=== PATIENT | female | born 1985 | race Caucasian/White ===

== ENCOUNTER 2018-10-01 18:26 | Observation (INO) | payer MEDICAID, SELFPAY ==
[2018-10-01] VITALS (20 sets, daily range): BP systolic 90–107; BP diastolic 60–69; PULSE 98–127; RESP 12–25; TEMP 37.1–38; O2SAT 84–100
--- NOTE | 2018-10-01 18:42 | NUR.NOTE ---
shortly after arriving to room and changing into gown patient right hand began shaking and patient started to make imcomprehensible sounds , patient responds to pain stimuli. Nursing Note:
--- NOTE | 2018-10-01 18:45 | W.ED.GENAD ---
Discharge Plan Disposition Patient Disposition: [facility] INPATIENT Condition: Fair Discharge Details Chief Complaint: AMS/LOC Clinical Impression: Altered mental status, unspecified ED Provider: Phillip Bee Meds and New Rx's Prescriptions: No Action oxycodone 5 mg Capsule 1 tab PO PRN PRNRF: 0 Medical Decision Making Patient is ordered for 1 mg of Ativan IM. This does not appear to be seizure-like activity to me either. I am in agreement with [facility]'s evaluation as well as neurology's evaluation. Recommendations were to admit for MRI and EEG. No loading of antiepileptic. I did speak to the ED physician at [facility] as well as reviewed the records that have been sent down to us. Patient symptoms resolved after the Ativan. I do think they are related to anxiety more than anything. She reports to me now that she is able to hear and comprehend what is being said but cannot respond. She is now complaining of some nausea and epigastric discomfort. These apparently are not new symptoms for her as she has had them for years episodically. However, she is stating that the symptoms are what is causing her to have these episodes. In any event, I did explain to her that her kids cannot stay here with her. She understands this at this point. Significant other has arranged for the children to go home with his mother. Patient is agreeable to admission here. Case is discussed with hospitalist. To Robyn with a seizure precautions. Will obtain MRI and EEG during observation admission. Recommend psychiatric consultation. Medical Records Medical records reviewed: Yes I reviewed the patient's medical records. HPI General Mode of arrival: ambulatory. Date/Time Provider Initiated Documentation: 10/01/18 18:39. Limitations to Documentation: altered mental status. Information obtained by: family, RN/MD and old records reviewed. HPI Narrative: Patient is brought here by her significant other for evaluation of question seizures. Patient just eloped from [facility] ED. Significant other reports that he brought her here for a second opinion. Per our nurse patient walked in on her own and was coherent. She undressed herself and got into the gown. When she got into bed she started uttering one syllable sounds over and over. Her eyes are closed. She is swaying her legs back and forth. Per the significant other these are the episodes that have been occurring. I spoke to the physician in [facility] ED who was just taking care of her. Patient symptoms apparently began after dental extraction on Saturday for which she was given Versed and ketamine. First event occurred shortly after the procedure and she was transported to [facility] ED. She was given Ativan there. Subsequently discharged. She was in [facility] ED last night for similar presentation. She was back there this afternoon. She has had a head CT at [facility] which was negative. Laboratory workup including lipase, CBC, CMP, troponin were all negative. She was seen by telemetry neurology at [facility] while in the ED at [facility]. It was felt that this likely was related to anxiety and pseudoseizures as opposed to true seizure. They recommended no antiepileptics. Sedate with Ativan as needed. Obtain MRI and EEG. She was set to be admitted there but when she was told that her children could not stay with her she apparently became angry and pulled her IV and left. That is how she ended up here. Significant other confirms all of the above. Patient herself is unable to provide me any type of history at this time. Related Data Home Medications Medication Instructions Recorded Confirmed oxycodone 1 tab PO PRN PRN 10/01/18 10/01/18 Allergies Allergy/AdvReac Type Severity Reaction Status Date / Time Penicillins Allergy Unknown Other (See Unverified 10/01/18 18:44 Comment) General Stated Complaint: AMS/LOC SHEREEN: 2 Review of Systems Review of Systems Unobtainable due to mental status PFSH Medical History Anxiety (Chronic) Depression (Chronic) Surgical History H/O: hysterectomy (Inactive) S/P cholecystectomy (Inactive) Exam Const General: other (Eyes closed, leg swaying back and forth, 1 syllable utterances being repeat) HENMT Head: normocephalic and atraumatic Mouth: moist mucous membranes Neck Neck: supple Resp Effort & Inspection: normal respiratory effort Auscultation: clear to auscultation bilaterally Cardio Rate: tachycardic Rhythm: regular rhythm Heart Sounds: S1 normal and S2 normal Pulses: radial pulses present GI Inspection: non-distended Palpation: soft Skin Rashes: no rashes Other: warm and dry Neuro Other: Patient is lying on stretcher with her eyes closed swaying her legs back and forth. She is repetitively ordering one syllable words and noises. She purposefully reached for my hand and moved it away when I was feeling her abdomen. She is moving all 4 extremities. She appears to be nonfocal. Extrem General: no clubbing, cyanosis or edema Course Vital Signs Temperature 98.8 F 10/01/18 18:37 Pulse 110 H 10/01/18 18:37 Respiratory Rate 18 10/01/18 18:37 Blood Pressure 107/69 10/01/18 18:37 Pulse Oximetry 100 10/01/18 18:37 Temperature 98.8 F 10/01/18 18:37 Temperature Source Skin 10/01/18 18:37 Pulse 110 H 10/01/18 18:37 Respiratory Rate 18 10/01/18 18:37 Blood Pressure 107/69 10/01/18 18:37 Pulse Oximetry 100 10/01/18 18:37 Oxygen Delivery Method Room Air 10/01/18 18:37 Oxygen Flow Rate 0 10/01/18 18:37
--- NOTE | 2018-10-01 18:48 | ED.GENADUL_ITS ---
Discharge Plan Disposition Patient Disposition: [facility] INPATIENT Condition: Fair Discharge Details Chief Complaint: AMS/LOC Clinical Impression: Altered mental status, unspecified ED Provider: Phillip Bee Meds and New Rx's Prescriptions: No Action oxycodone 5 mg Capsule 1 tab PO PRN PRNRF: 0 Medical Decision Making Patient is ordered for 1 mg of Ativan IM. This does not appear to be seizure- like activity to me either. I am in agreement with [facility]'s evaluation as well as neurology's evaluation. Recommendations were to admit for MRI and EEG. No loading of antiepileptic. I did speak to the ED physician at [facility] as well as reviewed the records that have been sent down to us. Patient symptoms resolved after the Ativan. I do think they are related to anxiety more than anything. She reports to me now that she is able to hear and comprehend what is being said but cannot respond. She is now complaining of some nausea and epigastric discomfort. These apparently are not new symptoms for her as she has had them for years episodically. However, she is stating that the symptoms are what is causing her to have these episodes. In any event, I did explain to her that her kids cannot stay here with her. She understands this at this point. Significant other has arranged for the children to go home with his mother. Patient is agreeable to admission here. Case is discussed with hospitalist. To Robyn with a seizure precautions. Will obtain MRI and EEG during observation admission. Recommend psychiatric consultation. Medical Records Medical records reviewed: Yes I reviewed the patient's medical records. HPI General Mode of arrival: ambulatory . Date/Time Provider Initiated Documentation: 10/01/18 18:39 . Limitations to Documentation: altered mental status . Information obtained by: family, RN/MD and old records reviewed . HPI Narrative: Patient is brought here by her significant other for evaluation of question seizures. Patient just eloped from [facility] ED. Significant other reports that he brought her here for a second opinion. Per our nurse patient walked in on her own and was coherent. She undressed herself and got into the gown. When she got into bed she started uttering one syllable sounds over and over. Her eyes are closed. She is swaying her legs back and forth. Per the significant other these are the episodes that have been occurring. I spoke to the physician in [facility] ED who was just taking care of her. Patient symptoms apparently began after dental extraction on Saturday for which she was given Versed and ketamine. First event occurred shortly after the procedure and she was transported to [place] ED. She was given Ativan there. Subsequently discharged. She was in [facility] ED last night for similar presentation. She was back there this afternoon. She has had a head CT at [facility] which was negative. Laboratory workup including lipase, CBC, CMP, troponin were all negative. She was seen by telemetry neurology at [facility] while in the ED at [facility]. It was felt that this likely was related to anxiety and pseudoseizures as opposed to true seizure. They recommended no antiepileptics. Sedate with Ativan as needed. Obtain MRI and EEG. She was set to be admitted there but when she was told that her children could not stay with her she apparently became angry and pulled her IV and left. That is how she ended up here. Significant other confirms all of the above. Patient herself is unable to provide me any type of history at this time. Related Data Home Medications Medication Instructions Recorded Confirmed oxycodone 1 tab PO PRN PRN 10/01/18 10/01/18 Allergies Allergy/AdvReac Type Severity Reaction Status Date / Time Penicillins Allergy Unknown Other (See Unverified 10/01/18 18:44 Comment) General Stated Complaint: AMS/LOC SHEREEN: 2 Review of Systems Review of Systems Unobtainable due to mental status PFSH Medical History Anxiety (Chronic) Depression (Chronic) Surgical History H/O: hysterectomy (Inactive) S/P cholecystectomy (Inactive) Exam Const General: other (Eyes closed, leg swaying back and forth, 1 syllable utterances being repeat) HENMT Head: normocephalic and atraumatic Mouth: moist mucous membranes Neck Neck: supple Resp Effort & Inspection: normal respiratory effort Auscultation: clear to auscultation bilaterally Cardio Rate: tachycardic Rhythm: regular rhythm Heart Sounds: S1 normal and S2 normal Pulses: radial pulses present GI Inspection: non-distended Palpation: soft Skin Rashes: no rashes Other: warm and dry Neuro Other: Patient is lying on stretcher with her eyes closed swaying her legs back and forth. She is repetitively ordering one syllable words and noises. She purposefully reached for my hand and moved it away when I was feeling her abdomen. She is moving all 4 extremities. She appears to be nonfocal. Extrem General: no clubbing, cyanosis or edema Course Vital Signs Temperature 98.8 F 10/01/18 18:37 Pulse 110 H 10/01/18 18:37 Respiratory Rate 18 10/01/18 18:37 Blood Pressure 107/69 10/01/18 18:37 Pulse Oximetry 100 10/01/18 18:37 Temperature 98.8 F 10/01/18 18:37 Temperature Source Skin 10/01/18 18:37 Pulse 110 H 10/01/18 18:37 Respiratory Rate 18 10/01/18 18:37 Blood Pressure 107/69 10/01/18 18:37 Pulse Oximetry 100 10/01/18 18:37 Oxygen Delivery Method Room Air 10/01/18 18:37 Oxygen Flow Rate 0 10/01/18 18:37
[2018-10-01] MEDS: LORazepam 2 MG/ML VIAL 1 MG IM (19:01)
[2018-10-01] MEDS: Normal Saline 1,000 ML 150 ML IV (19:43)
[2018-10-01] MEDS: Ondansetron 4 MG/2 ML VIAL IVP (19:44)
--- NOTE | 2018-10-01 20:15 | NUR.NOTE ---
Nursing Note: Patient arrived to room in stable condition, spouse at the bedside, patient is awake, alert and oriented, able to answer questions appropriately.
--- NOTE | 2018-10-01 21:03 | HPE_ITS ---
Date of service: 10/01/18 Time of Service: 21:02 Assessment and Plan (1) Altered mental status, unspecified: Current visit: Yes Status: Acute seizures versus pseudoseizures; I favor the latter despite the husbands description of prolonged lethargy and sleeping post event. there has been no associated biting of tongue/lips, no bladder or bowel incontinence w/ the events and the patient has recollection of the events and during reported spells she actually has been seen to volitionally use her arms to pull examiner's hands off her. We will pursue recommended neuro workup including EEG and MRI of brain; we do not have available neurology in house to consult. Once the above tests are back, the day hospitalist can call [facility] neurology to discuss further outpatient follow up. Qualifiers: Altered mental status type: transient alteration of awareness Qualified Code(s): R40.4 - Transient alteration of awareness (2) Depression: Current visit: No Status: Chronic consult psychiatry to evaluate any component of anxiety and depression that may be contributing to her current somatic symptoms. patient has hx of anxiety and depression but is not on any current Rx (3) Anxiety disorder: Current visit: No Status: Chronic as above History of Present Illness Chief Complaint: seizures/altered mental status Narrative: See Dr. Phillip Bee's excellent ER narrative of patient's presentation. Patient is 33 yr old female who presents to [facility] ED accompanied by her after leaving AMA from [facility] ED in [place], [place]. Patient had presented to [facility] yesterday and again today w/ complaints of episodic acute altered mental status. These episodes were thought to possibly be seizures in which the patient will suddenly without aura go into a state of decreased responsiveness in which she will be uttering single syllable sounds over and over while her eyes are closed and she will have swaying of her legs. These episoded began after she underwent a dental extraction in [facility] in which she received ketamine and versed for sedation. After the first episode she was sent to the ER at [facility] and she was treated w/ ativan and after a workup was discharged home. She presented to [facility] ED last night with similar symptoms and again this afternoon. While at [facility] the patient was seen by Dr. Santosh Sprague, emergency room attending who performed routine labs and CT of the head. Labs including CBC, CMP, troponin, lipase were all normal. (lipase being done to evaluate subjective c/o of nausea and epigastric discomfort). After negative labs and CT of head, Dr. Sprague consulted w/ [facility] neurologist who performed a telemedicine neurology consultation including interview and visualization of the patient. During the interview the patient reportedly had one of her spells of decreased LOC and the neurologist felt that her episodes were pseudoseizures. He recommended against initiation of AED's but to hospitalize her overnight for monitoring, EEG and MRI of brain. The ED and hospitalist at [facility] were prepared to do so however the patient left AMA when she was informed that her children could not stay with her in the hospital. Dr. Bee spoke w/ Dr. Sprague to confirm all of the above and Dr. Bee relayed the above information to me. Dr. Bee also witnessed such an episode of decresed LOC in which she would lie on her back with her eyes closed w/ her legs swaying back and forth and making single syllable sounds/noises but would purposefully pull Dr. Bee's hand away from her abdomen when he was examining her. He did not witness any postictal state and her symptoms resolved after 1 mg Ativan IM was given. Dr. Bee explained to the patient that she should remain overnight for EEG and MRI of the brain in the a.m. and that her children would not be allowed to stay overnight with her in the hospital. Her has arranged for the children to go home with his mother for the night. Per my interview w/ the and the patient she has never had seizures or seizure like episodes before and she has no antecedent aura other than she will get intense epigastric abdominal pains and nausea with these spells. However, after lengthy questioning she and her admit that she has been having severe lightheaded spells since last summer and has had occasional syncope and near syncope spells which has led to a workup at [facility] that has included holter monitoring and MRI of brain. Review of Systems Constitutional Reports system reviewed and no additional complaints, except as docu PFSH Medical History Depression (Chronic) Anxiety disorder (Chronic) Syncope (Chronic) Anxiety (Chronic) Depression (Chronic) H/O wisdom tooth extraction (Resolved) Surgical History S/P hysterectomy (Resolved) S/P laparoscopic cholecystectomy (Resolved) H/O: hysterectomy (Inactive) S/P cholecystectomy (Inactive) Family History Other Diabetes History History 2 Para 2 Hx # Term Pregnancies 2 Multiple births Hx # Pregnancies Ectopic pregnancies AB induced Hx Number of Living Children 2 AB spontaneous Meds Home Medications Medication Instructions Recorded Confirmed Type oxycodone 1 tab PO PRN PRN 10/01/18 10/01/18 History Allergies Allergy/AdvReac Type Severity Reaction Status Date / Time Penicillins Allergy Unknown Other (See Unverified 10/01/18 18:44 Comment) Exam Const General: cooperative, healthy appearing and no acute distress Orientation: alert, awake and oriented x3 HENMT Head: normal to inspection, normocephalic and atraumatic Ears: hearing grossly normal bilaterally and TM's normal bilaterally General nose exam: external nose normal, nares normal and nasal mucous membranes and turbinates normal Face and sinus: normal facial exam Mouth: oral mucosae normal Teeth and gingiva: dentition normal Throat: posterior oropharynx normal and uvula midline Eyes General: appearance normal, both eyes and all related structures Visual Cuello: normal visual cuello by confrontation Alignment and Position: alignment normal and position normal Eyelids: eyelids normal Sclera: sclerae normal Cornea: corneas normal Pupils: PERRL EOM: EOM intact bilaterally Neck Neck: normal visual inspection, full ROM, no lymphadenopathy, trachea midline, supple and no JVD Thyroid: thyroid normal Carotids: normal carotid upstroke Lymphatic: no lymphadenopathy noted Chest Chest: normal inspection of the chest and normal palpation of entire chest wall Resp Effort & Inspection: normal respiratory effort and able to speak in complete sentences Auscultation: clear to auscultation bilaterally Percussion: percussion normal Cardio Jugular venous pressure: no JVD Palpation: normal PMI Rate: regular rate Rhythm: regular rhythm Heart Sounds: S1 normal, S2 normal and normal, physiologic split S2 Bruits: no abdominal aortic bruits, no carotid bruits, no femoral bruits and no renal bruits Pulses: brachial pulses present, radial pulses present, femoral pulses present, popliteal pulses present, posterior tibial pulses present, dorsalis pedis pulses present and normal peripheral pulses GI Inspection: normal to inspection Palpation: soft and no hepatosplenomegaly Percussion: normal to percussion Auscultation: normal bowel sounds Back/Spine/Pelvis Back: no CVA tenderness Cervical Spine: normal cervical lordosis and cervical ROM normal Thoracic/Lumbar Spine: thoracic and lumbar spine normal to inspection Skin General skin exam: no rashes or lesions noted and turgor normal Lesions: no lesions Rashes: no rashes Wounds: no wounds Hair: normal Nails: normal Neuro General: alert, awake (lethargic but easily awakens and answers questions appropriately), oriented x3, gait normal, tone normal, moves all extremities, normal light touch, pain and propioception, no focal motor deficits, CN's II-XI intact bilaterally and deep tendon reflexes 2+ bilaterally Cognition: normal cognition Speech: speech normal Motor: muscle tone normal throughout and strength 5/5 throughout Sensory Exam: no sensory deficits noted DTR's: Rt Triceps: 2+, Lt Triceps: 2+, Rt Biceps: 2+, Lt Biceps: 2+, Rt Patellar: 2+, Lt Patellar: 2+, Rt Ankle: 2+ and Lt Ankle: 2+ Plantar Reflexes: Downgoing: bilateral Pupils: Normal pupillary reactivity/response: bilateral Extrem General: normal to inspection, full ROM, normal capillary refill, no joint enlargement, no clubbing, cyanosis or edema and no calf tenderness Psych Appearance: grossly normal and well kempt Mental Status: mental status grossly normal Speech and Movement: speech and movement normal Mood: congruent mood Affect: normal affect Attitude: cooperative Thought Process: normal Thought Content: normal Insight: insight good Judgment: judgment good Results Last Vital Signs Temp 38 C H 10/01/18 20:29 Pulse 103 H 10/01/18 20:29 Resp 18 10/01/18 20:29 BP 103/63 10/01/18 20:29 Pulse Ox 99 10/01/18 20:29
[2018-10-02] VITALS (9 sets, daily range): BP systolic 94–110; BP diastolic 57–69; PULSE 91–116; RESP 16–20; TEMP 36.9–38.8; O2SAT 96–99
[2018-10-02] MEDS: Acetaminophen 325 MG TAB PO ×2 (00:29→08:31)
[2018-10-02] MEDS: Normal Saline 1,000 ML 150 ML IV ×3 (02:05→15:32)
--- NOTE | 2018-10-02 10:29 | INITIAL_ITS ---
Care Management Initial Assess REASON FOR HOSPITALIZATION:: Seizures Versus Pseudoseizures PAST MEDICAL HISTORY/PAST SURGICAL HISTORY:: Syncope, Anxiety disorder, Depression, AMS unspecified PREVIOUS FUNCTIONAL STATUS/SOCIAL/FAMILY SUPPORTS:: Kristina resides in [place] with her significant other, Gary and their two children ages nine and three. CURRENT FUNCTIONAL STATUS:: Kristina was lying in bed, she reviewed her history leading up to admission and reported she was experiencing some blurry vision, but otherwise was doing ok. ADVANCE DIRECTIVES:: None on file. Has patient been provided with information about the portal?: No Did the patient sign up for the portal?: No CODE STATUS:: Full Code INSURANCE COVERAGE / FINANCIAL ISSUES:: Medicaid CURRENT HOME/COMMUNITY SERVICES/EQUIPMENT:: No current services or equipment. PRIMARY CARE PHYSICIAN:: Dr. Adrienne Lazo POTENTIAL DISCHARGE NEEDS:: Psyche consult, possible outpatient follow up plan. PATIENT/FAMILY EDUCATION NEEDS:: Review discharge instructions, discuss Ask Me Three. ANTICIPATED BARRIERS TO DISCHARGE:: None identified. TRANSPORTATION:: Via private vehicle PLAN:: Kristina will continue work up of presenting symptoms. She will have a Psychiatric Consult and continue to be closely monitored. Discharge plan undetermined at this time. Kristina will transport via private vehicle with family.
[2018-10-02] MEDS: Normal Saline Flush 10 ML SYR IVP ×3 (11:01→16:53)
[2018-10-02] MEDS: LORazepam 2 MG/ML VIAL 1 MG IVP (11:01)
[2018-10-02 11:17] LABS: Abs Immature Grans 0.02 k/cumm (0.0-0.09); Absolute Basophil Count 0.02 k/cumm (0.0-0.2); Absolute Eosinophil Count 0.02 k/cumm (0.0-0.7); Absolute Lymphocyte Count 0.57 k/cumm (1.2-3.4); Absolute Monocyte Count 0.29 k/cumm (0.11-0.7); Absolute Neutrophil Count 2.37 k/cumm (1.2-6.7); Basophils % 0.6; Eosinophils % 0.6; HCT 34.6 % (36.0-46.0); HGB 11.5 g/dL (12.0-15.5); Immature Grans % 0.6; Lymphocytes % 17.3; Mean Corp. HGB Concentration 33.2 g/dL (32.0-36.0); Mean Corpuscular Hemoglobin 29.2 pg (27.0-33.0); Mean Corpuscular Volume 87.8 fL (80-95); Mean Platelet Volume 10.2 fL (8.0-11.0); Monocytes % 8.8; Neutrophils % 72.1; Platelet Count 218 x1000/uL (130-400); RBC 3.94 m/cumm (4.00-5.20); RBC Distribution Width 13.6 % (11.7-14.6); White Blood Cell Count 3.29 k/cumm (4.4-10.8)
[2018-10-02 11:22] LABS: BUN 5 mg/dL (7-18); CREATININE 0.64 mg/dL (0.55-1.02); Calcium 7.3 mg/dL (8.5-10.1); Chloride 110 mmol/L (98-107); Glucose 97 mg/dL (70-100); Potassium 3.5 mmol/L (3.5-5.1); Sodium 141 mmol/L (136-145)
--- NOTE | 2018-10-02 12:07 | PHARADMIT ---
Admission Pharmacy Clinical Review SEIZURES VS PSEUDOSEIZURES Code Status Full Code Current Weight Wgt- 66.7 kg Renally Cleared and Narrow Therapeutic Index Meds CrCl~ 93.63 mL/min Medss-OK QTc Value / Action Taken NA BP Control, Fever BP- 104/57 Tmax- 38C Electrolytes reviewed Na- 141 K+3.5 DVT Prophylaxis none Opiate Usage / Scheduled Bowel Regimen Ordered Yes Yes Plt/SCr for Heparin / Enoxaparin Plts-218 SCr-0.64 INR for Warfarin na H/H stable, WBC/Bands H&H- 11.5/34.6 WBC- 3.29 Antibiotic appropriateness none Blood-pending Surgical ABX d/c within 24 hr na DM control / Insulin Dosing BG- 97 Heart Failure (Check EF%) (TIFFANY's, B-Block, Diuretics) none IV to PO Switch No Home Meds Reviewed Yes Home Meds Not Ordered none Comments
--- NOTE | 2018-10-02 12:11 | DI.MRI_ITS ---
SYMPTOMS/DIAGNOSIS: PSEUDOSEIZURES VERSUS SEIZURES MRI OF THE BRAIN: T 2 sagittal, T 1, T 2, FLAIR, diffusion and gradient echo axial and T 2 coronal sequences were performed. There is motion on multiple sequences. No intracranial hemorrhage, mass or infarct is seen. The ventricles are normal in size. There are no areas of restricted diffusion. There are no abnormal high signal lesions in the white matter. There is mucosal thickening of the ethmoid and maxillary sinuses. The vascular flow voids appear intact. The orbits and mastoid air cells are unremarkable. IMPRESSION: The exam is mildly limited by patient motion. No acute abnormality is identified.
--- NOTE | 2018-10-02 12:17 | DI.RAD_ITS ---
SYMPTOMS/DIAGNOSIS: FEVER PA AND LATERAL CHEST: The cardiac and mediastinal contours have a normal appearance. The lungs are well inflated and clear. No infiltrate or effusion is seen. Surgical clips are noted in the right upper quadrant. No new air is seen. IMPRESSION: Negative chest x-ray.
[2018-10-02 13:22] LABS: Magnesium 1.6 mg/dL (1.8-2.4); PHOSPHORUS 2.9 mg/dL (2.6-4.7); TSH (W/Ref FT4) 0.21 uIU/mL (0.358-3.74)
[2018-10-02 13:36] LABS: Vitamin D 25 Total 22.8 ng/ml (30-100)
[2018-10-02 14:55] LABS: HCG Qual (Urine) Negative
--- NOTE | 2018-10-02 14:56 | PGE_ITS ---
Date of Service Date of service: 10/02/18 Time of Service: 14:55 Assessment and Plan (1) Altered mental status, unspecified: Current visit: Yes Status: Acute Admitted for seizures versus pseudoseizures, with recollection of the events during, before and immediately following the episodes, she did not bowel or bladder incontinence, not tongue biting, no postictal state noted. MRI ne gative for acute process, nothing on physical exam to indicate meningitis. She endorses significant anxiety and stress in her life. She is followed by [facility] in [place]. She is prescribed Citalopram but has not reliably taken it (states she forgets). Continue seizure precautions, continue to monitor. She will need to follow up with [facility] in [place] as well as Neurology here at [facility] (not available for consult today). Qualifiers: Altered mental status type: transient alteration of awareness Coma depth: Coma timing: Qualified Code(s): R40.4 - Transient alteration of awareness (2) Fever: Current visit: Yes Status: Acute Possibly related to recent dental extraction. MRI negative, UA negative, chest x-ray negative, blood cultures pending. She has been afebrile throughout the day. Continue to monitor temperature. Repeat CBC in the am. If she continues to have fevers overnight, consider oral antibiotics for possible dental infection with follow up with her dental provider. Continue to monitor blood cultures. (3) Depression: Current visit: No Status: Chronic Continue Citalopram. Follow up with provider at [facility]. (4) Anxiety disorder: Current visit: No Status: Chronic Altered mental states possibly related to anxiety. Continue citalopram per home dose. Follow up with [facility]. (5) GERD (gastroesophageal reflux disease): Current visit: Yes Status: Chronic Epigastric discomfort that increases with anxiety. Initiate PPI. Continue PPI on discharge home. (6) DVT prophylaxis: Current visit: Yes Status: Acute SCDs for this healthy 33 year old female who is ambulatory. Encourage ambulation and hydration. Subjective Interval history since last seen: Kristina Bailon is a 33 year old female who presented to the ED overnight with reports of possible seizures. She recalled the events during the episode, she did not bowel or bladder incontinence, not tongue biting, no postictal state noted. She recently had Stephens teeth extr action (3) in [place] on Saturday (3 days prior). She was seen at [facility] and had a psychiatric visit via telemedicine at which time another episode was witnessed. Psychiatry did not feel that this event represented a seizure and did not recommend antiepileptics. She eloped from [facility] and presented to the [facility] ED. She has not had any seizure-like episodes today. She reports feeling tired, her eyes are blurry, she denies pain except in her neck, she denies any neck stiffness. She had 2 wisdom teeth extracted from her right upper jaw and one from her left lower jaw 3 days ago. The right upper jaw is sore. She denies headache, photophobia. She is not shortness of breath, coughing, wheezing, no chest pain/pressure, nausea, vomiting, diarrhea. She denies dysuria, hematuria. She does report significant stressors in her life including financial stresses, a child with ADD and OCD, and anxiety that she struggles with. She has citalopram prescribed but she does not take it reliably. Exam Narrative Exam Narrative: General: Healthy appearing female laying in bed, in NAD. Makes good eye contact. Answers questions appropriately. Pleasant and cooperative. HEENT: normocephalic, atraumatic, pupils equal and round, EOMI. Mouth: with moist mucous membranes, left lower jaw benign appearing site of dental extraction. Right upper jaw with open area, no active drainage. Neck: Supple with full ROM. Kernig and Brudzinski signs negative. Cardiovascular: Heart with a regular rate and rhythm, no murmur appreciated. Respiratory: Respirations even and unlabored, lung sounds clear to auscultation throughout. Abdomen: Soft, mild tenderness over epigastric region on palpation, positive bowel sounds throughout, no masses appreciated. Extremities: Well perfused without clubbing, cyanosis or edema. Tattoos over back and extremities. Objective Objective Clinical Data: Abnormal lab results 10/02/18 10/02/18 10/02/18 Range/Units 11:00 11:00 11:00 WBC 3.29 L (4.4-10.8) k/cumm RBC 3.94 L (4.00-5.20) m/cumm Hgb 11.5 L (12.0-15.5) g/dL Hct 34.6 L (36.0-46.0) % Absolute Lymphocytes 0.57 L (1.2-3.4) k/cumm Chloride 110 H (98-107) mmol/L BUN 5 L (7-18) mg/dL Calcium 7.3 L (8.5-10.1) mg/dL Magnesium 1.6 L (1.8-2.4) mg/dL 25-OH Vitamin D Total 22.8 L (30-100) ng/ml TSH 0.21 L (0.358-3.74) uIU/mL Vital Signs Temperature 37.0 C 10/02/18 10:51 Temperature Source Tympanic 10/02/18 10:51 Pulse 91 H 10/02/18 10:51 Pulse Rhythm Regular 10/02/18 07:40 Pulse 104 H 10/01/18 20:01 Respiratory Rate 20 10/02/18 10:51 Respiratory Effort Non-Labored 10/02/18 07:40 Respiratory Depth Normal 10/02/18 07:40 Respiratory Pattern Normal 10/02/18 07:40 Blood Pressure 104/57 L 10/02/18 10:51 Blood Pressure Mean 67 10/01/18 20:00 Pulse Oximetry 96 10/02/18 10:51 Oxygen Delivery Method Room Air 10/02/18 10:51 Oxygen Flow Rate 0 10/02/18 10:51 Pain Level 8 10/02/18 08:31 Comment 10/02/18 03:30 Intake & Output 10/01/18 10/02/18 10/02/18 23:59 11:59 23:59 Intake Total 2895.0 / 2895.0 0 / 2895.0 Balance 2895.0 / 2895.0 0 / 2895.0 Weight 69.6 kg 66.7 kg Intake: IV 2295.0 / 2295.0 0 / 2295.0 Oral 600 / 600 Other: Urine Color Yellow Urine Appearance Clear Comment void x 3 during noc per pt and Stool Size Moderate Voiding Methods Toilet Toilet Laboratory Results WBC 3.29 k/cumm (4.4-10.8) L 10/02/18 11:00 RBC 3.94 m/cumm (4.00-5.20) L 10/02/18 11:00 Hgb 11.5 g/dL (12.0-15.5) L 10/02/18 11:00 Hct 34.6 % (36.0-46.0) L 10/02/18 11:00 MCV 87.8 fL (80-95) 10/02/18 11:00 MCH 29.2 pg (27.0-33.0) 10/02/18 11:00 MCHC 33.2 g/dL (32.0-36.0) 10/02/18 11:00 RDW 13.6 % (11.7-14.6) 10/02/18 11:00 Plt Count 218 x1000/uL (130-400) 10/02/18 11:00 MPV 10.2 fL (8.0-11.0) 10/02/18 11:00 Immature Gran % 0.6 10/02/18 11:00 Neutrophils % 72.1 10/02/18 11:00 Lymphocytes % 17.3 10/02/18 11:00 Monocytes % 8.8 10/02/18 11:00 Eosinophils % 0.6 10/02/18 11:00 Basophils % 0.6 10/02/18 11:00 Absolute Neutrophils 2.37 k/cumm (1.2-6.7) 10/02/18 11:00 Absolute Lymphocytes 0.57 k/cumm (1.2-3.4) L 10/02/18 11:00 Absolute Monocytes 0.29 k/cumm (0.11-0.7) 10/02/18 11:00 Absolute Eosinophils 0.02 k/cumm (0.0-0.7) 10/02/18 11:00 Absolute Basophils 0.02 k/cumm (0.0-0.2) 10/02/18 11:00 Sodium 141 mmol/L (136-145) 10/02/18 11:00 Potassium 3.5 mmol/L (3.5-5.1) 10/02/18 11:00 Chloride 110 mmol/L (98-107) H 10/02/18 11:00 Carbon Dioxide 25.0 mmol/L (21.0-32.0) 10/02/18 11:00 Anion Gap 6.0 mmol/L (3-11) 10/02/18 11:00 BUN 5 mg/dL (7-18) L 10/02/18 11:00 Creatinine 0.64 mg/dL (0.55-1.02) 10/02/18 11:00 Estimated GFR/1.73 m2 >= 60.00 (mL/min/1.73m2) 10/02/18 11:00 Glucose 97 mg/dL (70-100) 10/02/18 11:00 Calcium 7.3 mg/dL (8.5-10.1) L 10/02/18 11:00 Phosphorus 2.9 mg/dL (2.6-4.7) 10/02/18 11:00 Magnesium 1.6 mg/dL (1.8-2.4) L 10/02/18 11:00 25-OH Vitamin D Total 22.8 ng/ml (30-100) L 10/02/18 11:00 TSH 0.21 uIU/mL (0.358-3.74) L 10/02/18 11:00 Free T4 0.90 ng/dL (0.76-1.46) 10/02/18 11:00
[2018-10-02 15:26] LABS: Bilirubin Negative (Negative); Blood Negative (Negative); Clarity Clear; Glucose Negative (Negative); Ketones Negative (Negative); Leukocyte Esterase Negative (Negative); Nitrite Negative (Negative); Specific Gravity 1.015 (1.005-1.025); pH 6.5 (5-8)
[2018-10-02] MEDS: Magnesium Oxide 400 MG TAB PO (15:32)
[2018-10-02] MEDS: Pantoprazole 40 MG VIAL IVP (16:52)
[2018-10-02] MEDS: oxyCODONE 5 MG TAB PO (19:24)
[2018-10-03] MEDS: oxyCODONE 5 MG TAB PO ×2 (01:59→08:02)
[2018-10-03 03:33] VITALS: BP 112/73; PULSE 101; RESP 18; TEMP 37.2; O2SAT 96
[2018-10-03 04:02] VITALS: BP 104/74; PULSE 108; RESP 18; TEMP 37.3; O2SAT 98
[2018-10-03 07:48] LABS: Basophils % 0.6; Eosinophils % 2.7; HCT 36.1 % (36.0-46.0); Lymphocytes % 17.9; Mean Corp. HGB Concentration 33.2 g/dL (32.0-36.0); Mean Corpuscular Hemoglobin 28.9 pg (27.0-33.0); Mean Platelet Volume 10.4 fL (8.0-11.0); Monocytes % 10.4; Neutrophils % 68.2; Platelet Count 228 x1000/uL (130-400); RBC 4.15 m/cumm (4.00-5.20); RBC Distribution Width 13.3 % (11.7-14.6); White Blood Cell Count 5.21 k/cumm (4.4-10.8)
[2018-10-03 07:49] LABS: Abs Immature Grans 0.01 k/cumm (0.0-0.09); Absolute Basophil Count 0.03 k/cumm (0.0-0.2); Absolute Eosinophil Count 0.14 k/cumm (0.0-0.7); Absolute Lymphocyte Count 0.93 k/cumm (1.2-3.4); Absolute Monocyte Count 0.54 k/cumm (0.11-0.7); Absolute Neutrophil Count 3.55 k/cumm (1.2-6.7); Immature Grans % 0.2
[2018-10-03 07:57] LABS: Anion Gap 7.4 mmol/L (3-11); BUN 3 mg/dL (7-18); CO2 25.6 mmol/L (21.0-32.0); CREATININE 0.68 mg/dL (0.55-1.02); Chloride 105 mmol/L (98-107); Glucose 93 mg/dL (70-100); Magnesium 1.6 mg/dL (1.8-2.4); Potassium 3.2 mmol/L (3.5-5.1); Sodium 138 mmol/L (136-145)
[2018-10-03] MEDS: Normal Saline Flush 10 ML SYR IVP (08:01)
[2018-10-03] MEDS: Pantoprazole 40 MG VIAL IVP (08:01)
--- NOTE | 2018-10-03 09:50 | PDOC.CMDIS ---
LACE Index Scoring Tool - Questions: Length of Stay (in days): 2 Acuity (Admit via E.D.?): Yes E.D. Visits: 1 - Answers: Total Score: 6 Risk of Readmission: Low Risk Care Management Discharge Reason for Hospitalization: Seizures Versus Pseudoseizures Discharge Plan: Kristina will discharge to home with an outpatient follow up plan for VEEG at [facility]. She refused Psych consult with Dr. Doherty and all possible work-up avenues at [facility] have been exhausted as all results have been negative. She will transport via private vehicle with her Gary and follow up with her PCP and plan of care as prescribed. Patient/Family Education Needs: Review of discharge instructions, self care needs upon discharge.
--- NOTE | 2018-10-03 09:55 | CMDISCH_ITS ---
LACE Index Scoring Tool - Questions: Length of Stay (in days): 2 Acuity (Admit via E.D.?): Yes E.D. Visits: 1 - Answers: Total Score: 6 Risk of Readmission: Low Risk Care Management Discharge Reason for Hospitalization: Seizures Versus Pseudoseizures Discharge Plan: Kristina will discharge to home with an outpatient follow up plan for VEEG at [facility]. She refused Psych consult with Dr. Doherty and all possible work-up avenues at [facility] have been exhausted as all results have been negative. She will transport via private vehicle with her Gary and follow up with her PCP and plan of care as prescribed. Patient/Family Education Needs: Review of discharge instructions, self care needs upon discharge.
--- NOTE | 2018-10-03 10:14 | DSE_ITS ---
Date of service: 10/03/18 Time of Service: 10:13 DS: Diagnosis Discharge Diagnosis (1) Anxiety disorder: Status: Chronic (2) Depression: Status: Chronic (3) Altered mental status, unspecified: Status: Acute Discharge Plan Disposition Patient Disposition: HOME Condition: Fair Discharge Details Reason For Visit: SEIZURES VERSUS PSEUDOSEIZURES Admit Date/Time: 10/01/18 19:45 Admit Provider: Hang Fields Attending Provider: Hang Fields Primary Care Provider: Kami,[facility] Hospital Course Hospital Course: Admitted for seizures versus pseudoseizures, with recollection of the events during, before and immediately following the episodes, she did not bowel or bladder incontinence, not tongue biting, no postictal state noted. MRI negative for acute process, nothing on physical exam to indicate meningitis. She endorses significant anxiety and stress in her life. She is followed by [facility] in [place]. She is prescribed Citalopram but has not reliably taken it (states she forgets). She will need to follow up with [facility] in [place] as well as Neurology. She was noted to have a max temp of 38.8 overnight. This subsided and was thought to be related to recent dental extraction. There was no evidence of infection on exam, fever work up including UA, cxr, blood cultures have all been negative and she has been afebrile since. She refused Psych consult with Dr. Doherty on 2 occasions, While hospitalized she was noted to be vitamin D deficient and was started on replacement. Her magnesium was 1.6 and replaced as well as her potassium of 3.2, replaced as well. Home Meds and New Rx's Prescriptions: New cholecalciferol (vitamin D3) 1,000 unit Tablet 1,000 units PO DAILY Qty: 60 RF: 0 Continued oxycodone 5 mg Capsule 1 tab PO PRN PRNRF: 0 Discharge Instructions Instructions: Vitamin B12 Deficiency (GEN) Additional Instructions: continue your citalopram as previously directed. you can use omeprazole for 2 to 3 weeks for epigastric discomfort. report fever to your oral surgeon immediately keep scheduled follow up appointment with primary care provider for further outpatient testing including EEG. present to closest ED sooner for new or worsening symptoms. Stand Alone Forms: Nursing Discharge Form Referrals: THA LARIOS [Other] ([facility] WILL CALL YOU WITH APPOINTMENT) Activity:: no driving, swimming etc. Equipment/Supplies:: No Equipment Needed Diet:: As Tolerated Exam Const General: cooperative, healthy appearing, comfortable and no acute distress Nutritional Appearance: thin Orientation: alert, awake and oriented x3 HENMT Head: normal to inspection, normocephalic and atraumatic Face and sinus: normal facial exam Mouth: oral mucosae normal, tongue normal and moist mucous membranes Teeth and gingiva: dentition normal, gingiva normal and other (no abnomalities with extractions, ) Resp Effort & Inspection: normal respiratory effort Auscultation: clear to auscultation bilaterally Cardio Rate: regular rate Rhythm: regular rhythm GI Inspection: normal to inspection Palpation: soft Auscultation: normal bowel sounds Skin General skin exam: no rashes or lesions noted Neuro General: alert, awake and oriented x3 Cranial Nerves: CN's II-XI intact bilaterally Cognition: normal cognition Speech: speech normal Gait: normal gait Motor: muscle tone normal throughout and strength 5/5 throughout Coordination: [id number] test normal, Romberg test normal, tandem gait normal, Does not sway with eyes open and rapid alternating movement UE normal Extrem General: normal to inspection and full ROM Psych Appearance: grossly normal and well kempt Mood: congruent mood Affect: normal affect Attitude: cooperative Thought Process: normal Thought Content: normal DS: Data Vitals/I&O Vitals and I&O: Vital Signs Temperature 37.3 C 10/03/18 04:02 Temperature Source Tympanic 10/03/18 04:02 Pulse 108 H 10/03/18 04:02 Pulse Rhythm Regular 10/02/18 21:18 Pulse 104 H 10/01/18 20:01 Respiratory Rate 18 10/03/18 04:02 Respiratory Effort Non-Labored 10/02/18 21:18 Respiratory Depth Normal 10/02/18 21:18 Respiratory Pattern Normal 10/02/18 21:18 Blood Pressure 104/74 10/03/18 04:02 Blood Pressure Mean 67 10/01/18 20:00 Pulse Oximetry 98 10/03/18 04:02 Oxygen Delivery Method Room Air 10/03/18 04:02 Oxygen Flow Rate 0 10/03/18 04:02 Pain Level 6 10/03/18 01:59 Comment 10/02/18 03:30 Intake & Output 10/02/18 10/02/18 10/03/18 11:59 23:59 11:59 Intake Total 2895.0 / 3585.0 690.0 / 3585.0 Balance 2895.0 / 3585.0 690.0 / 3585.0 Weight 66.7 kg Intake: IV 2295.0 / 2985.0 690.0 / 2985.0 Oral 600 / 600 Other: Comment void x 3 during noc per pt and Stool Size Moderate Voiding Methods Toilet Labs on day of discharge: Labs from last 24 hours 10/03/18 10/03/18 10/02/18 07:14 07:14 13:50 WBC 5.21 D RBC 4.15 Hgb 12.0 Hct 36.1 MCV 87.0 MCH 28.9 MCHC 33.2 RDW 13.3 Plt Count 228 MPV 10.4 Immature Gran % 0.2 Neutrophils % 68.2 Lymphocytes % 17.9 Monocytes % 10.4 Eosinophils % 2.7 Basophils % 0.6 Absolute Neutrophils 3.55 Absolute Lymphocytes 0.93 L Absolute Monocytes 0.54 Absolute Eosinophils 0.14 Absolute Basophils 0.03 Sodium 138 Potassium 3.2 L Chloride 105 Carbon Dioxide 25.6 Anion Gap 7.4 BUN 3 L Creatinine 0.68 Estimated GFR/1.73 m2 >= 60.00 Glucose 93 Calcium 8.0 L Phosphorus Magnesium 1.6 L 25-OH Vitamin D Total TSH Free T4 Urine Color Yellow Urine Clarity Clear Urine pH 6.5 Ur Specific Shelby 1.015 Urine Protein Negative Urine Ketones Negative Urine Blood Negative Urine Nitrite Negative Urine Bilirubin Negative Urine Urobilinogen 2.0 H Ur Leukocyte Esterase Negative Urine Glucose Negative Urine HCG, Qual 10/02/18 10/02/18 10/02/18 13:50 11:00 11:00 WBC 3.29 L RBC 3.94 L Hgb 11.5 L Hct 34.6 L MCV 87.8 MCH 29.2 MCHC 33.2 RDW 13.6 Plt Count 218 MPV 10.2 Immature Gran % 0.6 Neutrophils % 72.1 Lymphocytes % 17.3 Monocytes % 8.8 Eosinophils % 0.6 Basophils % 0.6 Absolute Neutrophils 2.37 Absolute Lymphocytes 0.57 L Absolute Monocytes 0.29 Absolute Eosinophils 0.02 Absolute Basophils 0.02 Sodium Potassium Chloride Carbon Dioxide Anion Gap BUN Creatinine Estimated GFR/1.73 m2 Glucose Calcium Phosphorus Magnesium 25-OH Vitamin D Total 22.8 L TSH Free T4 Urine Color Urine Clarity Urine pH Ur Specific Shelby Urine Protein Urine Ketones Urine Blood Urine Nitrite Urine Bilirubin Urine Urobilinogen Ur Leukocyte Esterase Urine Glucose Urine HCG, Qual Negative 10/02/18 11:00 WBC RBC Hgb Hct MCV MCH MCHC RDW Plt Count MPV Immature Gran % Neutrophils % Lymphocytes % Monocytes % Eosinophils % Basophils % Absolute Neutrophils Absolute Lymphocytes Absolute Monocytes Absolute Eosinophils Absolute Basophils Sodium 141 Potassium 3.5 Chloride 110 H Carbon Dioxide 25.0 Anion Gap 6.0 BUN 5 L Creatinine 0.64 Estimated GFR/1.73 m2 >= 60.00 Glucose 97 Calcium 7.3 L Phosphorus 2.9 Magnesium 1.6 L 25-OH Vitamin D Total TSH 0.21 L Free T4 0.90 Urine Color Urine Clarity Urine pH Ur Specific Shelby Urine Protein Urine Ketones Urine Blood Urine Nitrite Urine Bilirubin Urine Urobilinogen Ur Leukocyte Esterase Urine Glucose Urine HCG, Qual 10/02/18 09:28 Blood Blood Culture - Pending 10/02/18 09:15 Blood Blood Culture - Pending Preliminary micro results at discharge 10/02/18 09:28 Blood Culture - Pending Blood 10/02/18 09:15 Blood Culture - Pending Blood PFSH Medical History Syncope (Chronic) Anxiety disorder (Chronic) Depression (Chronic) Anxiety (Chronic) Depression (Chronic) H/O wisdom tooth extraction (Resolved) Surgical History S/P hysterectomy (Resolved) S/P laparoscopic cholecystectomy (Resolved) H/O: hysterectomy (Inactive) S/P cholecystectomy (Inactive) Family History Other Diabetes History History 2 Para 2 Hx # Term Pregnancies 2 Multiple births Hx # Pregnancies Ectopic pregnancies AB induced Hx Number of Living Children 2 AB spontaneous
[2018-10-03] MEDS: Magnesium Oxide 400 MG TAB PO (10:51)
[2018-10-03] MEDS: Potassium Chloride 20 MEQ TABCR 40 MEQ PO (10:51)
[2018-10-03 11:05] VITALS: BP 90/58; PULSE 108; RESP 14; TEMP 36.9; O2SAT 97
== END 2018-10-03 11:37 | disposition home or self-care (01) ==
LOC: ER 20:04 → MS 20:16
PROVIDERS: Internal Medicine; Nurse Practitioner; Admitting Provider Internal Medicine; Emergency Provider Emergency Medicine; Visit Provider Internal Medicine
DX: F41.9 Anxiety disorder, unspecified (principal); F32.9 Major depressive disorder, single episode, unspecified; R41.82 Altered mental status, unspecified; R50.9 Fever, unspecified; E83.42 Hypomagnesemia; E87.6 Hypokalemia; E55.9 Vitamin D deficiency, unspecified; Z63.8 Other specified problems related to primary support group; K21.9 Gastro-esophageal reflux disease without esophagitis; Z98.890 Other specified postprocedural states
CPT/HCPCS: 36410; 36415; 80048; 82306; 87040; 96361; 96372; 96374; 99217; 99220; 99232; 99285; 70551; 71046; 81003; 81025; 83735; 84100; 84146; 84439; 84443; 85025; 93005; 93010; 99225; 99284; G0378; J2060; J2405